=== PATIENT | male | born 1960 | race Hispanic/Latino ===

== ENCOUNTER → 2022-08-20 | Day surgery (SDC) | payer MEDICARE ==
[~2022-08-20] MED LIST: ASPIRIN81 MG PO; ATORVASTATIN CA20 MG PO; CELEBREX200 MG PO; CYCLOBENZAPRINE10 MG PO; ELDERBERRY ZIN1 EACH; FENTANYL CITRATE/PF 100MCG/2 ML INJ ONE; LACTATED RINGER'S 1,000 ML ONE; LANTUS 3ML100 UNITS/ PO; LIDOCAINE HCL 2% LOCAL INJ 5 ML SDV VIAL INJ ONE; LORTAB 10 MG-3473 ML PO; MIDAZOLAM HCL 2 MG/2 ML VIAL ONE; NEURONTIN300 MG PO; NORCO; OZEMPIC0.25 MG/0. SC; POVIDONE IODINE 0.05% 0.05 % ML PO ONE; PROPOFOL IV EMULSION 10 MG/ML 20 ML VIAL ONE; PROTONIX20 MG PO; RISPERIDONE1 MG PO; TERAZOSIN HCL5 MG PO; VENLAFAXINE HCL75 M1 PO
[2022-08-20 14:10] VITALS: BP 129/80
== END | disposition home or self-care (01) ==
LOC: OR 10:39
PROVIDERS: ATTEND Internal Medicine Gastroenterology
DX: R13.10 Dysphagia, unspecified (principal); K29.60 Other gastritis without bleeding; K29.50 Unspecified chronic gastritis without bleeding; K22.89 Other specified disease of esophagus; K31.A12 Gastric intestinal metaplasia without dysplasia, involving the body (corpus); K21.9 Gastro-esophageal reflux disease without esophagitis; K31.89 Other diseases of stomach and duodenum; K44.9 Diaphragmatic hernia without obstruction or gangrene; R19.8 Other specified symptoms and signs involving the digestive system and abdomen; Z71.3 Dietary counseling and surveillance; I25.10 Atherosclerotic heart disease of native coronary artery without angina pectoris; E11.9 Type 2 diabetes mellitus without complications; G62.9 Polyneuropathy, unspecified; E78.00 Pure hypercholesterolemia, unspecified; Z71.89 Other specified counseling; Z79.4 Long term (current) use of insulin; Z79.85 Long-term (current) use of injectable non-insulin antidiabetic drugs; Z79.82 Long term (current) use of aspirin; Z79.899 Other long term (current) drug therapy; Z68.33 Body mass index [BMI] 33.0-33.9, adult; Z98.61 Coronary angioplasty status; Z80.0 Family history of malignant neoplasm of digestive organs
CPT/HCPCS: 43239; 88305; 88342; 93005; J2001; J2250; J2704; J3010; J7121; 88304; 88312